=== PATIENT | female | born 1985 | race Caucasian/White ===

== ENCOUNTER 2025-09-28 15:26 | Inpatient (IN) | payer BC ==
[~2025-09-28] VITALS: Ht 149.9 cm; Wt 81.6 kg
[2025-09-28] MEDS ORDERED: ONDANSETRON 4 MG/2 ML VIAL ONE (15:38)
[2025-09-28] MEDS ORDERED: LORA-259 PO (15:46)
[2025-09-28] MEDS ORDERED: CLON0.1T PO (15:46)
[2025-09-28 16:03] LABS: CREATININE 1.2 mg/dL (0.6-1.3); PLATELET COUNT (AUTO) 211 K/uL (179-408); RED BLOOD CELL COUNT(AUTO) 6.04 MIL/uL (3.63-4.92); RED CELL DISTRIBUTION WIDTH 14.1 % (12.3-17.7); SODIUM SERUM 136 mmol/L (136-145); UREA NITROGEN, BLOOD 12 mg/dL (7-18); WHITE BLOOD COUNT (AUTO) 5.1 K/uL (3.8-11.8)
[2025-09-28 16:10] LABS: ASPARTATE AMINOTRANSFERASE 39 U/L (15-37); TOTAL PROTEIN, SERUM 7.8 g/dL (6.4-8.2)
[2025-09-28] MEDS: ONDANSETRON 4 MG/2 ML VIAL IV ONE (16:22)
[2025-09-28] MEDS ORDERED: LORAZEPAM 2 MG/1 ML VIAL ONE (16:24)
[2025-09-28] MEDS: LORAZEPAM 2 MG/1 ML VIAL IV ONE (16:31)
[2025-09-28] MEDS ORDERED: QUET200T PO (16:59)
[2025-09-28] MEDS ORDERED: DIPH25CA83 PO (16:59)
[2025-09-28] MEDS ORDERED: MIRT-149 PO (17:00)
[2025-09-28] MEDS ORDERED: TRAZ-257 PO (17:00)
[2025-09-28] MEDS ORDERED: ASPI81TA31 PO (17:01)
[2025-09-28] MEDS ORDERED: NITROGLYCERIN OINT 1 GM PACKET TP ONE (17:14)
[2025-09-28] MEDS ORDERED: ASPIRIN 81 MG TAB.CHEW ONE (17:14)
[2025-09-28] MEDS: ASPIRIN 81 MG TAB.CHEW PO ONE (17:22)
[2025-09-28] MEDS: NITROGLYCERIN OINT 1 GM PACKET TP ONE (17:22)
[2025-09-28] MEDS ORDERED: diphenhydrAMINE 25 MG CAP PO PRN (18:00)
[2025-09-28] MEDS ORDERED: ONDANSETRON 4 MG/2 ML VIAL IV PRN (18:00)
[2025-09-28] MEDS ORDERED: MAGNESIUM HYDROXIDE 30 ML LIQUID UDC PO PRN (18:00)
[2025-09-28 18:05] VITALS: BP 150/99
[2025-09-28 18:40] VITALS: BP 141/98; TEMP 98.3; O2SAT 98
[2025-09-28] MEDS: LORAZEPAM 1 MG TABLET PO SCH (18:45)
[2025-09-28] MEDS: HYDROCODONE/APAP 5-325MG TABLET PO PRN (18:47)
[2025-09-28 19:00] VITALS: BP 140/70; TEMP 98.4; O2SAT 95
[2025-09-28] MEDS: ENOXAPARIN SODIUM 40 MG/0.4 ML DISP.SYRIN SQ SCH (20:28)
[2025-09-28] MEDS: TRAZODONE 100 MG TABLET PO SCH (20:29)
[2025-09-28] MEDS: MIRTAZAPINE 15 MG TABLET PO SCH (20:29)
[2025-09-28] MEDS: QUETIAPINE FUMARATE 200 MG TABLET PO SCH (20:29)
[2025-09-29] VITALS: BP 138/87; TEMP 98.2; O2SAT 97
[2025-09-29 04:00] VITALS: BP 149/76; TEMP 98.3; O2SAT 97
[2025-09-29 07:15] LABS: PLATELET COUNT (AUTO) 212 K/uL (179-408); RED BLOOD CELL COUNT(AUTO) 5.58 MIL/uL (3.63-4.92); RED CELL DISTRIBUTION WIDTH 14.1 % (12.3-17.7); WHITE BLOOD COUNT (AUTO) 5.3 K/uL (3.8-11.8)
[2025-09-29 07:28] VITALS: BP 148/80; TEMP 98.2; O2SAT 94
[2025-09-29 07:38] LABS: CREATININE 1.0 mg/dL (0.6-1.3); SODIUM SERUM 139.0 mmol/L (136-145); UREA NITROGEN, BLOOD 12.0 mg/dL (7-18)
[2025-09-29] MEDS: ASPIRIN 81 MG TAB.CHEW PO SCH (09:40)
[2025-09-29] MEDS: HYDROCHLOROTHIAZIDE 25 MG TABLET PO SCH (09:41)
[2025-09-29] MEDS: LOSARTAN POTASSIUM 50 MG TABLET PO SCH (09:46)
[2025-09-29 10:40] VITALS: BP 145/84; TEMP 98; O2SAT 94
[2025-09-29] MEDS: ATORVASTATIN 40 MG TABLET PO SCH (20:28)
[2025-09-30 04:38] VITALS: BP 159/113; TEMP 98.9; O2SAT 97
[2025-09-30 07:50] VITALS: BP 162/98; TEMP 98.3; O2SAT 98
[2025-09-30 10:56] VITALS: BP 149/91; TEMP 97.8; O2SAT 97
[2025-09-30] MEDS: ACETAMINOPHEN 325 MG TABLET PO PRN (12:10)
[2025-09-30] MEDS ORDERED: AMLO-212 PO (13:50)
[2025-09-30] MEDS ORDERED: HYDR25TA4 PO (13:50)
[2025-09-30] MEDS ORDERED: LOSA50TA39 PO (13:50)
[2025-09-30] MEDS ORDERED: ATOR40TA PO (13:50)
[2025-09-30 16:06] VITALS: BP 174/93; TEMP 98.8; O2SAT 95
[2025-09-30 17:30] VITALS: BP 151/87
[2025-09-30 19:25] VITALS: BP 181/115; TEMP 98.6; O2SAT 97
[2025-09-30] MEDS: AMLODIPINE 5 MG TABLET PO SCH (20:15)
[2025-10-01 06:06] VITALS: BP 149/92; TEMP 98.3; O2SAT 95
[2025-10-01] MEDS ORDERED: AMLODIPINE 2.5 MG TABLET PO ONE (08:30)
[2025-10-01 08:51] VITALS: BP 149/92
[2025-10-01] MEDS: AMLODIPINE 5 MG TABLET PO ONE (08:51)
[2025-10-01] MEDS ORDERED: AMLODIPINE 5 MG TABLET PO SCH (21:00)
== END 2025-10-01 10:05 | disposition home or self-care (01) | DRG 305 ==
LOC: ER 15:26 → TELE3 18:19 → MEDSURG3 09-30 09:45
PROVIDERS: ADMIT Nurse Practitioner Acute Care; ATTEND Nurse Practitioner Acute Care
PROC: 05HF33Z Insertion of Infusion Device into Left Cephalic Vein, Percutaneous Approach (ICD-10-PCS; principal; 2025-09-29)
DX: I16.0 Hypertensive urgency (principal); D68.59 Other primary thrombophilia; E66.01 Morbid (severe) obesity due to excess calories; I10 Essential (primary) hypertension; F41.9 Anxiety disorder, unspecified; Z68.36 Body mass index [BMI] 36.0-36.9, adult; Z90.710 Acquired absence of both cervix and uterus; Z90.49 Acquired absence of other specified parts of digestive tract; Z79.82 Long term (current) use of aspirin; Z79.899 Other long term (current) drug therapy
CPT/HCPCS: 36415; 71045; 83690; 83735; 84100; 84443; 84484; 85025; 93307; A4606; A4663; G0378; J0360; J1650; J2060; J2405